=== PATIENT | female | born 1960 | race Caucasian/White ===

== ENCOUNTER 2020-10-19 09:10 | Outpatient (CLI) | payer BC ==
--- NOTE | 2020-10-19 09:30 | RAD ---
Right ankle: 3 VIEWS INDICATION:Injury and pain COMPARISON:None FINDINGS: Mild soft tissue swelling. No evidence of fracture. No osseous abnormality identified. Small spur from the plantar calcaneus. IMPRESSION: No evidence of fracture
== END 2020-10-19 09:11 | disposition home or self-care (01) ==
LOC: RAD-FRANK 09:10
PROVIDERS: ATTEND Nurse Practitioner Family
DX: M25.571 Pain in right ankle and joints of right foot (principal)

== ENCOUNTER 2020-12-29 13:06 | Outpatient (CLI) | payer BC | END 2020-12-29 13:07 | disposition home or self-care (01) | LOC: RAD-FRANK 13:06 | PROVIDERS: ATTEND Nurse Practitioner Family | DX: M48.07 Spinal stenosis, lumbosacral region (principal); M47.816 Spondylosis without myelopathy or radiculopathy, lumbar region | CPT/HCPCS: 72100; 72170 ==

== ENCOUNTER 2021-03-01 13:47 | Outpatient (CLI) | payer BC | END 2021-03-01 13:48 | disposition home or self-care (01) | LOC: TBSIIMAG 13:47 | PROVIDERS: ATTEND Neurological Surgery | DX: R10.32 Left lower quadrant pain (principal); M16.12 Unilateral primary osteoarthritis, left hip ==

== ENCOUNTER 2021-04-06 09:16 | Outpatient (CLI) | payer BC | END 2021-04-06 09:17 | disposition home or self-care (01) | LOC: RAD-FRANK 09:16 | PROVIDERS: ATTEND Nurse Practitioner Family | DX: R05 Cough (principal) | CPT/HCPCS: 71046 ==

== ENCOUNTER 2021-05-23 09:00 | Outpatient (CLI) | payer BC ==
[2021-05-23 21:37] LABS: SARS-CoV-2 PCR by NAA Not Detected (NotDetected)
== END 2021-05-23 09:01 | disposition home or self-care (01) ==
LOC: LABBT 09:00
PROVIDERS: ATTEND Ophthalmology Retina Specialist
DX: Z01.812 Encounter for preprocedural laboratory examination (principal); H43.392 Other vitreous opacities, left eye; Z20.822 Contact with and (suspected) exposure to COVID-19
CPT/HCPCS: U0003; U0005

== ENCOUNTER 2021-05-26 06:00 | Day surgery (SDC) | payer BC ==
[2021-05-25 10:21] VITALS: BMI 28.3
[2021-05-26] MEDS ORDERED: Cyclopentolate W/ Phenylephrin 40 DROP/2 ML BOT ONE (06:24)
[2021-05-26] MEDS ORDERED: Cyclopentolate 1% Opth Drop 2 ML BOT ONE (06:25)
[2021-05-26] MEDS ORDERED: Phenylephrine 2.5% Ophth Soln 5 ML BOT ONE (06:25)
[2021-05-26] MEDS ORDERED: PROPOFOL 20 ML ONE (06:28)
[2021-05-26] MEDS ORDERED: Fentanyl 100 MCG/2 ML VIAL ONE (06:28)
[2021-05-26] MEDS ORDERED: Midazolam HCl 2 mg/2 ml Vial ONE (06:28)
[2021-05-26] MEDS ORDERED: EPINEPHrine 0.3 MG in Ophthalmic Irrigation Solution 500 ML IRR SCH (06:30)
[2021-05-26] MEDS ORDERED: Lidocaine 4% PF 5 ML AMP ONE (06:58)
[2021-05-26] MEDS ORDERED: Triamcinolone 40 MG/ML VIAL ONE (06:58)
[2021-05-26] MEDS ORDERED: Lidocaine 1% PF 5 ML VIAL ONE (06:58)
[2021-05-26] MEDS ORDERED: Maxitrol 0.1% Opth Oint 3.5 GM TUBE ONE (06:58)
[2021-05-26] MEDS ORDERED: Bupivacaine PF 0.75% SDV 10 ML ONE (06:58)
[2021-05-26] MEDS ORDERED: CEFAZOLIN 1 GM VIAL ONE (06:58)
[2021-05-26] MEDS ORDERED: PROPOFOL 200 MG/20 ML VIAL ONE (06:58)
== END 2021-05-26 08:10 | disposition home or self-care (01) ==
LOC: SDC 06:00
PROVIDERS: ATTEND Ophthalmology Retina Specialist
PROC: 08T53ZZ Resection of Left Vitreous, Percutaneous Approach (ICD-10-PCS; principal; 2021-05-26)
PROC: 08NF3ZZ Release Left Retina, Percutaneous Approach (ICD-10-PCS; principal; 2021-05-26)
DX: H43.312 Vitreous membranes and strands, left eye (principal); Z79.899 Other long term (current) drug therapy; Z88.1 Allergy status to other antibiotic agents; Z88.2 Allergy status to sulfonamides
CPT/HCPCS: J0171; J0690; J2250; J2704; J3010; J3301; J3490

== ENCOUNTER 2022-01-02 13:49 | Outpatient (CLI) | payer BC | END 2022-01-02 13:50 | disposition home or self-care (01) | LOC: RAD-FRANK 13:49 | PROVIDERS: ATTEND Nurse Practitioner Family | DX: Z87.19 Personal history of other diseases of the digestive system (principal) | CPT/HCPCS: 74018 ==